=== PATIENT | female | born 1930 | race Caucasian/White ===

== ENCOUNTER 2016-08-19 13:25 | Emergency (ER) | payer OTHER ==
[~2016-08-19] VITALS: Ht 162.6 cm; Wt 80.0 kg
--- NOTE | 2016-08-19 13:48 | ERA ---
ER Documentation Chief Complaint Date/Time DATE: 08/19/16 TIME: 13:43 Chief Complaint HPI 86-year-old female who presents via EMS as a possible code stroke. Initially time of onset was reported to be 1 hour prior to arrival. However after further conversation with the patient's it appears that this timeframe is not very clear. The patient has been in bed for approximately 24 hours. He noticed that there is something abnormal around 10 AM this morning EMS was called several hours later. The patient is responsive with obvious left-sided facial droop, gaze deficit and left-sided hemiparesis. The patient denies any pain currently. Remainder of HPI is very limited. The patient does not recall past medical history, medication list or anticoagulant history. Neither does the patient's . ROS All systems reviewed and are negative except as per history of present illness. Medications Home Meds Reported Medications Atorvastatin Calcium* (Atorvastatin Calcium*) 20 Mg Tablet, 20 MG PO QHS, #30 TAB 08/19/16 Hydrochlorothiazide* (Hydrochlorothiazide*) 25 Mg Tab, 25 MG PO DAILY, #30 TAB 08/19/16 Atenolol* (Atenolol*) 25 Mg Tablet, 25 MG PO DAILY, #30 TAB 08/19/16 Losartan Potassium* (Losartan Potassium*) 25 Mg Tablet, 25 MG PO DAILY, TAB 08/19/16 Allergies Allergies: Coded Allergies: erythromycin base (Verified Allergy, Severe, 08/19/16) lisinopril (Verified Allergy, Severe, 08/19/16) PMhx/Soc Patient does not recall FmHx Patient does not recall Physical Exam Vitals Vital Signs Date Time Temp Pulse Resp B/P Pulse Ox O2 Delivery O2 Flow Rate FiO2 08/19/16 16:00 58 18 166/58 98 Room Air 08/19/16 14:19 Nasal Cannula 08/19/16 13:51 98.5 60 18 178/96 98 Physical Exam General: Well developed, well nourished, no acute distress, right-sided gaze preference Head: Normocephalic, atraumatic. Eyes: Pupils equally reactive, EOM intact ENT: Moist mucous membranes Neck: Supple, no lymphadenopathy Respiratory: Lungs clear bilaterally, no distress Cardiovascular: RRR, no murmurs, rubs, or gallops Abdominal: Soft, non-tender, non-distended, no peritoneal signs : Deferred MSK: No edema, no unilateral swelling, 5/5 strength to the right upper and lower extremity, flaccid paralysis to the left upper and lower extremity Neurologic: Patient is alert and responsive she has a right-sided gaze preference, some comprehension deficit, left-sided facial droop, left-sided hemiparesis Skin: No rash Psych: Normal mood Result Diagram: 08/19/16 1350 08/19/16 1350 Results 24 hrs Laboratory Tests Test 08/19/16 13:50 08/19/16 14:22 Activated Partial Thromboplast Time 25.6Sec Alanine Aminotransferase (ALT/SGPT) 47IU/L Albumin 4.2g/dl Albumin/Globulin Ratio 1.20 Alkaline Phosphatase 89IU/L Anion Gap 16 Aspartate Amino Transf (AST/SGOT) 55IU/L Basophils # 0.010^3/ul Basophils % 0.3% Blood Morphology Comment Blood Urea Nitrogen 20mg/dl Calcium Level 9.7mg/dl Carbon Dioxide Level 27mmol/L Chloride Level 102mmol/L Creatinine 0.52mg/dl Direct Bilirubin 0.00mg/dl Eosinophils # 0.010^3/ul Eosinophils % 0.1% Globulin 3.50g/dl Glucose Level 142mg/dl Hematocrit 43.0% Hemoglobin 14.3g/dl Hemoglobin A1c 5.3% INR International Normalized Ratio 0.96 Indirect Bilirubin 0.5mg/dl Lymphocytes # 1.210^3/ul Lymphocytes % 9.1% Mean Corpuscular Hemoglobin 28.7pg Mean Corpuscular Hemoglobin Concent 33.3g/dl Mean Corpuscular Volume 86.2fl Mean Platelet Volume 6.6fl Monocytes # 0.710^3/ul Monocytes % 5.6% Neutrophils # 11.210^3/ul Neutrophils % 84.9% Nucleated Red Blood Cells # 0.010^3/ul Nucleated Red Blood Cells % 0.0/100WBC Platelet Count 67810^3/UL Potassium Level 4.1mmol/L Prothrombin Time 12.8Sec Prothrombin Time Ratio 1.0 Red Blood Count 4.9910^6/ul Red Cell Distribution Width 14.9% Sodium Level 141mmol/L Total Bilirubin 0.5mg/dl Total Protein 7.7g/dl Troponin I 0.013ng/ml White Blood Count 13.210^3/ul Bedside Glucose 131mg/dL Current Medications Medications (Trade) Dose Ordered Sig/Faustina Route PRN Reason Start Time Stop Time Status Last Admin Dose Admin Ondansetron HCl (Zofran Inj) 4 mg ONCE STAT IV 08/19/16 13:54 08/19/16 13:55 DC 08/19/16 14:09 Aspirin (Aspirin) 162 mg ONCE ONCE PO 08/19/16 16:30 08/19/16 16:31 Ondansetron HCl (Zofran Inj) 4 mg ONCE STAT IV 08/19/16 16:10 08/19/16 16:12 DC Procedures/MDM EKG, MONITORS, & DIAGNOSTIC IMAGING: EKG: I reviewed and interpreted a 12-lead EKG. Rhythm: Normal sinus rhythm Ectopy: None Arrhythmia: None Intervals: No abnormalities ST segments: No elevations or depressions T waves: No contiguous inversions Interpretation: No acute cardiac ischemia Chest x-ray: I reviewed and interpreted a 1 view of the chest Mediastinum: No enlargement Cardiac silhouette: No cardiomegaly Airspace: Clear lung higgins bilaterally without evidence of pneumothorax Bones: No evidence of fracture Interpretation: No acute cardiopulmonary process CT Brain: IMPRESSION: 1. Extensive hypo attenuation throughout the right frontal lobe and parietal lobe with subtle cortically based focus of high attenuation. Differential diagnostic considerations include metastatic disease with extensive vasogenic edema or large MCA territory ischemic infarct. Contrast-enhanced MRI with diffusion weighted imaging is recommended. 2. No intracranial hemorrhage, uncal, or transtentorial herniation. 2. The brain is normal in appearance. RPTAT:AAJJ CTA Head and Neck: Not recommended by neurology given CT findings. Rec MRI MRI Brain: PENDING LAB INTERPRETATION: Nonspecific leukocytosis MEDICAL DECISION MAKING: The patient presents with signs and symptoms consistent with a likely right MCA stroke with left-sided deficit including facial droop hemiparesis and gaze preference. This is concerning for significant stroke syndrome. Initially, it was reported that the patient had possible 1 hour of onset. However, after further conversation with the patient's this timeframe is very misleading. It appears we do not have an onset of symptoms that can range anywhere from yesterday during the day. For this reason I do not believe that the patient would be a good TPA candidate. I believe the risks outweigh the benefits. However, stroke code activation was initiated. Stroke code was initiated from the field and the patient was taken directly to CT scan. ER COURSE: Stroke assessment and timing: Onset of symptoms: Unclear, possible 12-24 hours Arrival to ED: 1327 Stroke code activation: 1318 Initial conversation with neurology: [address] scan: [address]: 1338 Initial neurology evaluation: 1341 NIHSS: 23 TPA decision-making: The patient is not a TPA candidate given unknown duration of symptoms. Stroke neurologist on-call: Dr. Welch Critical Care Note: Total time: 47 minutes Indication/Organ System Threat: Acute neurologic deficit and stroke code activation that requires emergent evaluation and assessment to prevent neurologic compromising collapse. I spent the above amount of critical care time with the patient, not including billable procedures. This included chart review, consultations, repeat bedside evaluations, and titration of appropriate medications to prevent cardiopulmonary or respiratory collapse. I kept the patient and/or family informed of laboratory and diagnostic imaging results throughout the emergency room course. DISPOSITION PLAN: The patient continues to be resting comfortably, airway is protected. The patient is a member of [employer]. I spoke to Dr. Bentley, authorization number of [id number]. I recommend transfer to a stepdown unit or ICU for further management of severe ischemic stroke. Permissive hypertension is appropriate. Of note CT imaging was discussed with the radiologist who suggested this could possibly related to metastatic disease process. However also could be related to acute ischemic stroke. Acute ischemic stroke seems more reasonable in the setting however MRI has been ordered. Aspirin seems to be appropriate given no hemorrhage. Departure Diagnosis: Primary Impression: Acute ischemic stroke Condition: Stable BERTO LOBO MD Aug 19, 2016 13:48
[2016-08-19 13:51] VITALS: Ht 162.6 cm; Wt 80.0 kg
[2016-08-19] MEDS ORDERED: ONDANSETRON 4 MG INJ IV STA ×3 (13:54→20:18)
[2016-08-19 13:59] LABS: BASOPHILS % 0.3 % (0.0-2.0); EOSINOPHILS % 0.1 % (0.0-7.0); HEMOGLOBIN 14.3 g/dl (12.0-16.0); LYMPHOCYTES # 1.2 10^3/ul (0.8-2.9); LYMPHOCYTES % 9.1 % (15.0-51.0); MEAN CORPUSCULAR HEMOGLOBIN 28.7 pg (29.0-33.0); MEAN CORPUSCULAR HGB CONC 33.3 g/dl (32.0-37.0); MEAN CORPUSCULAR VOLUME 86.2 fl (82.0-101.0); MEAN PLATELET VOLUME 6.6 fl (7.4-10.4); MONOCYTE # 0.7 10^3/ul (0.3-0.9); MONOCYTES % 5.6 % (0.0-11.0); NEUTROPHIL # 11.2 10^3/ul (1.6-7.5); NEUTROPHILS % 84.9 % (39.0-77.0); PLATELET COUNT 378 10^3/UL (140-440); RED BLOOD COUNT 4.99 10^6/ul (4.20-5.40); RED CELL DISTRIBUTION WIDTH 14.9 % (11.5-14.5); UNCORRECTED WBC 13.2 10^3/ul (4.8-10.8); WHITE BLOOD COUNT 13.2 10^3/ul (4.8-10.8)
[2016-08-19 14:05] LABS: ALBUMIN 4.2 g/dl (3.3-4.9); CONDITION 1; LH ANALYZER COMMENTS 1
[2016-08-19 14:06] LABS: POTASSIUM 4.1 mmol/L (3.5-5.1)
[2016-08-19 14:07] LABS: INR 0.96; PARTIAL THROMBOPLASTIN TIME 25.6 Sec (25.0-35.0); PROTIME 12.8 Sec (12.2-14.2)
[2016-08-19 14:08] LABS: ALBUMIN/GLOBULIN RATIO 1.2; BILIRUBIN,INDIRECT 0.5 mg/dl (0-1.1); BILIRUBIN,TOTAL 0.5 mg/dl (0.2-1.3); CREATININE 0.52 mg/dl (0.44-1.00); TOTAL PROTEIN 7.7 g/dl (6.1-8.1)
[2016-08-19 14:09] LABS: CALCIUM 9.7 mg/dl (8.4-10.2)
[2016-08-19 14:21] LABS: TROPONIN-I 0.013 ng/ml (0.00-0.12)
--- NOTE | 2016-08-19 14:22 | RADRPT ---
PROCEDURE: XR Chest 1 view. CLINICAL INDICATION: Shortness of breath, possible stroke TECHNIQUE: AP views of the chest were obtained. COMPARISON: None. FINDINGS: The heart is large. Calcified atherosclerosis is noted in the aorta. Lungs are hypoinflated. [place] tion of the right hemidiaphragm is identified. Atelectasis is seen at the right lung base. No conso lidations are identified. No pneumothorax is seen. Osseous structures are intact. IMPRESSION: Cardiomegaly with calcified atherosclerosis in the aorta. Hypoinflated lungs with mild elevation right hemidiaphragm. Atelectasis at the right lung base. RPTAT: AA .Gabriel Valdivia MD, Date Time Electronically viewed and signed by .Gabriel Valdivia MD, on 08/19/2016 14:22 .P/
[2016-08-19] MEDS ORDERED: LOSA25TA5 PO (14:27)
[2016-08-19] MEDS ORDERED: ATOR20TA38 PO (14:28)
[2016-08-19] MEDS ORDERED: HYD25 PO (14:28)
[2016-08-19] MEDS ORDERED: ATEN-51 PO (14:28)
--- NOTE | 2016-08-19 14:46 | RADRPT ---
AMENDMENT: 08/19/2016 1:56:48 PM Barron Degroot MD These findings were discussed with Dr. Robles at the time of interpretation. Clarification of finding s indicates that the of focal wedge defect in the prior region does extend to the cortex mitigating in favor of ischemic infarction. PROCEDURE: CT Brain without contrast. CLINICAL INDICATION: Left-sided weakness. TECHNIQUE: A CT of the brain was performed on a multidetector CT scanner utilizing axial imaging f rom the skull base through the vertex without IV contrast. Multiplanar reformatted images were made . The CTDIvol is 44.58 mGy and the DLP is 720.23 mGycm. One of the following dose reduction maureen hniques were utilized: Automated dense exposure control, adjustment of the mAand/or kV according to patient's size, use of iterative reconstruction technique. COMPARISON: None FINDINGS: Diffuse of low attenuation throughout the right frontal lobe extending to the cortex of the superior middle frontal and right parietal lobe with effacement of the sulci and gyri in these regions.. There is a cortically based focus of high attenuation measuring 12.2 x 9 x 11.6 mm ( transverse, AP, and craniocaudal dimensions respectively) in the medial aspect of the right superior frontal gyrus . Although this may represent increased conspicuity of the cortical alexis matter in this region due to surrounding hypotension of white matter, these findings are concerning for underlying brain metas tasis and vasogenic edema. Right MCA territory infarct in a similar appearance. . No extra-axial fluid collection is seen. The remaining ventricles and subarachnoid spaces are otherwise age appropriate size. The basal cisterns are patent. The orbits, posterior fossa contents, and brain stem are unremarkable The visualized paranasal sinuses and osseous structures are grossly unremarkable. IMPRESSION: 1. Extensive hypo attenuation throughout the right frontal lobe and parietal lobe with subtle corti mac based focus of high attenuation. Differential diagnostic considerations include metastatic di sease with extensive vasogenic edema or large MCA territory ischemic infarct. Contrast-enhanced MRI with diffusion weighted imaging is recommended. 2. No intracranial hemorrhage, uncal, or transtentorial herniation. 2. The brain is normal in appearance. RPTAT:AAJJ J Port, Physician Date Time Electronically viewed and signed by Eddie Degroot Physician on 08/19/2016 13:56 REBEKAH/
--- NOTE | 2016-08-19 15:01 | STROKE ---
Date/Time of Note Date/Time of Note DATE: 08/19/16 TIME: 13:53 Patient Information General Patient location: emergency Arrival Date Age 86 Gender female Weight History & Physical Patient History Notes Pt Hx Reviewed History of Present Illness 86yo F presents with acute onset left sided weakness. Patient's noticed patient was more listless yesterday evening. Patient spends most of her time in bed and he did not notice any weakness until today. He is unsure if patient had any weakness earlier this morning or last night. Review of Systems Constitutional: no symptoms reported EENTM: no symptoms reported Respiratory: no symptoms reported Cardiovascular: no symptoms reported Gastrointestinal: no symptoms reported Genitourinary: no symptoms reported Musculoskeletal: no symptoms reported Skin: no symptoms reported Psychiatric/Neurological: no symptoms reported All Other Systems: Reviewed and Negative NIH Stroke Scale NIH Stroke Scale 1A - Level of Conciousness: 0 - Alert keenly [id number] LOC Questions: 1 - Anwers one [id number] - LOC Commands: 1 - Performs one task2 - Best Gaze: 1 - Partial Gaze palsy3 - Visual: 0 - No visual loss4 - Facial Palsy: 0 - No visual loss5A - Motor Arm - Left: 4 - No [id number] - Motor Arm - Right: 0 - No [id number] - Motor Leg - Left: 4 - No [id number] - Motor Leg - Right: 2 - Some effort to gravity7 - Limb Ataxia: 0 - Absent8 - Sensory: 1 - Mild to moderate loss9 - Best Language: 0 - No aphasia or normalDysarthria: 0 - Normal 11 - Extinction and inattentio: 2 - Profound extinctionTotal Score: 16 Date/Time Recorded DATE: 08/19/16 TIME: 13:53 Submitted By Kermit Welch t-PA Imaging Review Imaging Reviewed: Yes Date/Time Imaging Reviewed DATE: 08/19/16 TIME: 13:53 Imaging Findings Acute right MCA CVA Inclusion/Exclusion Criteria outside time window t-PA Administration Recommendation: No Weight Recommedation submitted by Kermit Welch Reason t-PA not Recommended outside time window, CT findings of large right MCA CVA t-PA Not Recommended Date/Time 13:50 Recommendations Impression Diagnosis acute right middle cerebral artery ischemic stroke Recommendation 86yo F presents with acute onset left sided weakness. Neurological exam is notable for left arm and leg weakness, left sided hemineglect, and left sided numbness. CT Head demonstrates and exam is consistent with an acute ischemic stroke of the right middle cerebral artery. I recommend workup to include MRI Brain without gadolinium, carotid ultrasound, and transthoracic echocardiogram. I recommend aspirin 325mg daily. Diagnostic Labs: Lipid Proile Hgb A1C CMP CBC w/Diff Coags Urinaysis Therapy: Physical Therapy Speech Therapy Occupational Therapy Misc. Recommendations: Bedside Swallow Evaluation Pnumatic Compression Devices Stroke Education Smoking Education KERMIT WELCH Aug 19, 2016 14:15
[2016-08-19] MEDS ORDERED: ASPIRIN 81 MG TAB PO ONE (16:30)
--- NOTE | 2016-08-19 19:06 | RADRPT ---
PROCEDURE: MRI Brain without contrast. CLINICAL INDICATION: Left-sided weakness TECHNIQUE: Multiplanar MRI of the brain without contrast was performed on a 3.0 T scanner with the following sequences obtained: T1-weighted, T2-weighted/FLAIR, diffusion weighted (with ADC map), GR E. COMPARISON: CT brain 08/19/2016 FINDINGS: There are multifocal areas of restricted diffusion involving the frontal, parietal, and posterior te mporal lobes with associated increased T2-weighted FLAIR signal intensity compatible with acute - re cent infarcts. These are predominately in the middle, anterior cerebral artery territories. There are areas of hemorrhagic conversion with associated susceptibility artifact. There is some local ma ss effect without midline shift identified. The ventricles and remainder of the sulci sulci are mildly enlarged, compatible with generalized vol ume loss. Mild areas of increased T2 / FLAIR signal intensity are present in the periventricular - deep white matter, nonspecific but likely related to chronic small vessel ischemic changes. Flow voids are identified in the proximal intracranial arteries and dural sinuses suggesting patency . The mastoid air cells and paranasal sinuses are grossly clear. IMPRESSION: 1. Multi focal acute - recent infarcts in the right frontal, parietal and temporal lobes predominat mallorie in the MCA and JAYCEE territories with associated hemorrhagic conversion. 2. No midline shift. 3. Mild generalized volume loss, with mild chronic small vessel ischemic changes. Critical results called to Dr. LOBO at 05:08 p.m., 08/19/2016 RPTAT: VV .Nitish Bean MD, MD Date Time Electronically viewed and signed by .Nitish Bean MD, MD on 08/19/2016 17:10 .O/
[2016-08-19 19:38] VITALS: TEMP 99.4
[2016-08-19] MEDS ORDERED: hydrALAzine 20 MG INJ IV ONE (20:00)
[2016-08-19 20:05] VITALS: BP 146/58; PULSE 64; RESP 22
== END 2016-08-19 20:25 | disposition short-term general hospital (02) ==
LOC: E/R 13:25
DX: I63.9 Cerebral infarction, unspecified (principal); R40.2252 Coma scale, best verbal response, oriented, at arrival to emergency department; I10 Essential (primary) hypertension; R40.2362 Coma scale, best motor response, obeys commands, at arrival to emergency department; R40.2142 Coma scale, eyes open, spontaneous, at arrival to emergency department
CPT/HCPCS: 70450; 70551; 71010; 80053; 82962; 83036; 84484; 85025; 85610; 85730; 86850; 86900; 86901; 93005; 96374; 96375; 96376; 99291; J0360; J2405